=== PATIENT | male | born 1990 | race Caucasian/White ===

== ENCOUNTER 2022-09-01 02:55 | Emergency (ER) | payer SELFPAY ==
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
[2022-09-01 03:10] VITALS: BP 140/93; PULSE 113; TEMP 37.3; O2SAT 95
[2022-09-01 03:14] VITALS: BP 140/99; BP 180/80; PULSE 104; PULSE 99; RESP 20; O2SAT 98
[2022-09-01 04:21] VITALS: BP 127/64; PULSE 99; TEMP 37; O2SAT 98
[2022-09-01] MEDS: Cyclobenzaprine HCl 10 MG TABLET PO (04:57)
[2022-09-01] MEDS: Ibuprofen 600 MG TABLET PO (04:58)
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
== END 2022-09-01 05:23 | disposition home or self-care (01) ==
PROVIDERS: Emergency Provider Emergency Medicine Emergency Medical Services
DX: S13.9XXA Sprain of joints and ligaments of unspecified parts of neck, initial encounter (principal); S40.011A Contusion of right shoulder, initial encounter; R51.9 Headache, unspecified; M54.2 Cervicalgia; V43.52XA Car driver injured in collision with other type car in traffic accident, initial encounter; Y93.9 Activity, unspecified; Y92.410 Unspecified street and highway as the place of occurrence of the external cause; Y99.9 Unspecified external cause status; Z79.899 Other long term (current) drug therapy
CPT/HCPCS: 70450; 72125; 73010; 73030; 99284